=== PATIENT | female | born 1980 | race Caucasian/White ===

== ENCOUNTER 2022-06-08 11:00 | Inpatient (IN) | payer OTHER ==
[2022-06-08 11:19] VITALS: BMI 38.4
[2022-06-08] MEDS ORDERED: hydrALAZINE 20 MG/ML VIAL SLOW IVP PRN ×3 (11:21→14:00)
[2022-06-08] MEDS ORDERED: Calcium Gluc 4.6 MEQ/10 ML (100 MG/ML) SLOW IVP PRN ×3 (11:21→19:09)
[2022-06-08] MEDS ORDERED: Lorazepam 2 MG/ML VIAL SLOW IVP PRN ×3 (11:21→19:09)
[2022-06-08] MEDS ORDERED: Labetalol HCl 100 MG/20 ML VIAL SLOW IVP PRN (11:21)
[2022-06-08 11:47] LABS: #Basophils 0.1 10x3/uL (0.0-0.2); #Eosinphils 0.1 10x3/uL (0.0-0.5); #Neutrophils 9.3 10x3/uL (1.5-8.4); %Basophils 0.4 % (0.0-2.0); %Eosinophils 0.7 % (0.0-6.0); %Lymphocytes 21.3 % (18.0-47.0); %Monocytes 7.1 % (0.0-10.0); %Neutrophils 69.3 % (40.0-75.0); Hemoglobin 11.2 g/dL (12.0-15.5); Mean Corpuscular HGB CONC 33.6 g/dL (32.0-36.0); Mean Corpuscular Volume 92.2 fl (81.6-98.3); Mean Platelet Volume 12.5 fl (7.4-10.4); Platelet Count 162 10x3/uL (150-450); RBC Distribution Width 15.5 % (11.5-14.5); Red Blood Cell (RBC) Count 3.61 10x6/uL (3.90-5.03); White Blood Cell (WBC) Count 13.5 10x3/uL (3.5-10.5)
[2022-06-08 12:04] LABS: ALT (SGPT) 29 U/L (8-55); AST (SGOT) 38 U/L (5-34); Albumin 3.4 g/dL (3.5-5.0); Alkaline Phosphatase 100 U/L (40-110); Anion Gap 12 mmol/L (10-20); BUN (Urea Nitrogen) 20 mg/dL (7.0-18.7); Bilirubin, Total 0.3 mg/dL (0.2-1.2); Calc. Creatinine Clearance 141 mL/min (70-130); Carbon Dioxide 19 mmol/L (22-29); Chloride 107 mmol/L (98-107); Estimated GFR 85; Globulin 3.1 g/dL (2.4-3.5); Glucose 93 mg/dL (70-105); Potassium 3.8 mmol/L (3.5-5.1); Protein, Total 6.5 g/dL (6.0-8.3); Sodium 134 mmol/L (136-145)
[2022-06-08 12:04] LABS: Creatinine, Urine 51.58 mg/dL (47-110)
[2022-06-08] MEDS: Lactated Ringer's 1,000 ML IV SCH (13:30)
[2022-06-08] MEDS ORDERED: Lidocaine 1% (PF) 30 ML VIAL SC PRN (14:00)
[2022-06-08] MEDS ORDERED: NS w/ Oxytocin 30 units 500 ML IV SCH ×2 (14:00)
[2022-06-08] MEDS ORDERED: HYDROcodone/Acetaminophen 5/325 mg Tablet PO PRN ×2 (14:00)
[2022-06-08] MEDS ORDERED: Ondansetron PF 4 MG/2 ML Vial IVP PRN ×2 (14:00→17:36)
[2022-06-08] MEDS ORDERED: Ibuprofen 800 MG TAB PO PRN (14:00)
[2022-06-08] MEDS ORDERED: Promethazine HCl 25 MG/ML VIAL IM PRN ×2 (14:00→17:36)
[2022-06-08] MEDS ORDERED: Bupivacaine/Epinephrine 0.25% 30 ML VIAL ONE (14:55)
[2022-06-08 15:10] LABS: HBSAg Index 0.15 S/CO (0-0.99); Hep B Surf Ag Non-Reactive S/CO (NonReactive)
[2022-06-08 15:11] LABS: Syphilis Antibody Nonreactive (Nonreactive); Syphilis Antibody Index 0.15 S/CO (<1.00 Non-Reactive)
[2022-06-08 15:12] LABS: Mean Corpuscular HGB CONC 33.3 g/dL (32.0-36.0); Mean Corpuscular Hemoglobin 30.6 pg (27.0-33.0); Mean Corpuscular Volume 91.7 fl (81.6-98.3); Mean Platelet Volume 12.5 fl (7.4-10.4); Platelet Count 152 10x3/uL (150-450); RBC Distribution Width 15.6 % (11.5-14.5); White Blood Cell (WBC) Count 12.5 10x3/uL (3.5-10.5)
[2022-06-08] MEDS ORDERED: ePHEDrine Sulfate 50 MG/10 ML VIAL SLOW IVP PRN (17:36)
[2022-06-08] MEDS ORDERED: Moisturizing Cream (Eucerin) 113 GM JAR TOP PRN (17:36)
[2022-06-08] MEDS ORDERED: Naloxone HCl 0.4 mg/ml Vial IVP PRN ×2 (17:36)
[2022-06-08] MEDS ORDERED: diphenhydrAMINE 50 MG/ML VIAL IVP PRN (17:36)
[2022-06-08 17:38] LABS: SARS-CoV-2 NAA Rapid Test Not Detected (NotDetected)
[2022-06-08] MEDS ORDERED: Communication Order-Pharmacy FS SCH (17:45)
[2022-06-08] MEDS ORDERED: Fentanyl 2 mcg/Bupivacaine 0.1% Cassette 100 ML EPIDURAL SCH (17:45)
[2022-06-08] MEDS ORDERED: Lactated Ringer's 500 ML IV PRN (17:46)
[2022-06-08] MEDS ORDERED: Fentanyl 2 mcg/Bup 0.1% Cadd 100 ML ONE (17:48)
[2022-06-08] MEDS ORDERED: Magnesium Sulfate 20 gm/500 ml 20 GM/500 ML BAG ONE (19:10)
[2022-06-08] MEDS ORDERED: Magnesium Sulfate 20 gm/500 ml 20 GM/500 ML BAG IVPB SCH ×2 (19:15)
[2022-06-08] MEDS: Acetaminophen 325 MG TAB PO PRN (23:40)
[2022-06-09] MEDS: Acetaminophen 325 MG TAB PO PRN (04:26)
[2022-06-09] MEDS ORDERED: Prenatal Vitamin 1 TAB PO SCH (09:00)
[2022-06-09] MEDS ORDERED: Ferrous Sulfate 325 MG TAB PO SCH (09:00)
[2022-06-09] MEDS ORDERED: Benzocaine-Menthol 82.5 ML CAN TOP PRN (15:23)
[2022-06-09] MEDS ORDERED: Milk Of Magnesia 30 ML UDCUP PO PRN (15:23)
[2022-06-09] MEDS ORDERED: Misoprostol 200 MCG TAB VAG PRN (15:23)
[2022-06-09] MEDS ORDERED: Boostrix 0.5 ML (Tdap) VIAL (>/=7 yrs of age) IM ONE (15:23)
[2022-06-09] MEDS ORDERED: HYDROcodone/Acetaminophen 5/325 mg Tablet PO PRN ×2 (15:23)
[2022-06-09] MEDS ORDERED: Bisacodyl 10 MG SUPP PR PRN (15:23)
[2022-06-09] MEDS ORDERED: hydrALAZINE 20 MG/ML VIAL SLOW IVP PRN (15:23)
[2022-06-09] MEDS: Ferrous Sulfate 325 MG TAB PO SCH (17:55)
[2022-06-09] MEDS: Ibuprofen 800 MG TAB PO SCH (17:57)
[2022-06-10] MEDS: Ibuprofen 800 MG TAB PO SCH ×2 (03:13→08:59)
[2022-06-10] MEDS: Docusate 100 MG CAP PO SCH ×2 (06:13→08:59)
[2022-06-10] MEDS: Lactated Ringer's 1,000 ML IV SCH (06:14)
[2022-06-10] MEDS: Ferrous Sulfate 325 MG TAB PO SCH (08:02)
[2022-06-10 08:25] VITALS: TEMP 97.5
[2022-06-10] MEDS ORDERED: Prenatal Vitamin 1 TAB PO SCH (09:00)
[2022-06-10 11:49] VITALS: BP 134/76
== END 2022-06-10 14:20 | disposition home or self-care (01) | DRG 807 ==
LOC: CSHLD/OP 11:00 → CSHLD 17:51 → CSHPP 06-09 18:10
PROVIDERS: ADMIT Obstetrics & Gynecology; ATTEND Obstetrics & Gynecology
PROC: 10E0XZZ Delivery of Products of Conception, External Approach (ICD-10-PCS; principal; 2022-06-08)
PROC: 3E0334Z Introduction of Serum, Toxoid and Vaccine into Peripheral Vein, Percutaneous Approach (ICD-10-PCS; 2022-06-09)
DX: O14.14 Severe pre-eclampsia complicating childbirth (principal); Z37.0 Single live birth; O24.425 Gestational diabetes mellitus in childbirth, controlled by oral hypoglycemic drugs; E66.9 Obesity, unspecified; O99.214 Obesity complicating childbirth; Z3A.36 36 weeks gestation of pregnancy; O26.893 Other specified pregnancy related conditions, third trimester; Z67.11 Type A blood, Rh negative; Z20.822 Contact with and (suspected) exposure to COVID-19; J45.909 Unspecified asthma, uncomplicated; O99.52 Diseases of the respiratory system complicating childbirth; Z79.84 Long term (current) use of oral hypoglycemic drugs; Z79.82 Long term (current) use of aspirin; Z79.899 Other long term (current) drug therapy
CPT/HCPCS: 36415; 51702; 80053; 82570; 82805; 84156; 85025; 86780; 86850; 86870; 86880; 86900; 86901; 86922; 86977; 87340; 90384; 96372; 99285; J0360; J2590; J3475; U0002